=== PATIENT | male | born 1980 | race Two or more races ===

== ENCOUNTER → 2025-02-07 | Outpatient (CLI) | payer MEDICAID, SELFPAY ==
--- NOTE | 2025-02-07 14:19 | XR_ITS ---
Examination: Abdomen AP single view Technique: AP portable supine abdomen, single view Exam date and time: February 07, 2025 1425 hours INDICATIONS: History kidney stones FINDINGS: Abundant stool overlies the kidneys 6 mm calcific density which appears lateral to be a ureteral calculus Surgical clips upper right abdomen IMPRESSION: Abundant stool overlies the kidneys which impairs visualization
== END | disposition home or self-care (01) ==
LOC: CDIM 14:11
PROVIDERS: Referring Provider Surgery; Visit Provider Surgery
DX: K59.00 Constipation, unspecified (principal)
CPT/HCPCS: 74018

== ENCOUNTER 2025-04-06 08:10 | Day surgery (SDC) | payer MEDICAID, SELFPAY ==
--- NOTE | 2025-04-04 06:00 | EKG_ITS ---
[facility] Test Date: 2025-04-04 Pat Name: ALDEN MYRICK Department: Room: - Gender: Male Internal Audit Manager: KEITH : 1980 Requested By: Adarsh Granados Order Number: [id number] Reading MD: Adarsh Granados Measurements Intervals [place] Rate: 73 P: 36 DE: 152 QRS: 46 QRSD: 93 T: 31 QT: 361 QTc: 398 Interpretive Statements SINUS RHYTHM POSSIBLE RIGHT VENTRICULAR CONDUCTION DELAY [RSR (QR) IN V1/V2] NONSPECIFIC ST & T-WAVE ABNORMALITY Compared to ECG 12/26/2023 14:20:06 No significant changes /store/S0/[id number]/ecg/[id number].pdf
[2025-04-04 07:16] VITALS: BMI 25.2
[2025-04-04 07:41] LABS: Collection Type, Urine Clean Catch; Squamous Epithelial Cell,Urine 0 /hpf (0-5)
[2025-04-04 08:53] LABS: Basophils # (Auto) 0.0 Thou/mm3 (0.0-0.2); Basophils % (Auto) 1 % (0-2.5); Eosinophils # (Auto) 0.1 Thou/mm3 (0.0-0.5); Eosinophils % (Auto) 3 % (0-10); Hematocrit 47.1 % (41.0-53.0); Hemoglobin 16.4 g/dL (13.5-16.0); Immature Granulocytes Auto 0.01 Thou/mm3 (0.00-0.00); Lymphocytes # (Auto) 1.7 Thou/mm3 (1.0-4.8); Lymphocytes % (Auto) 34 % (10-50); Mean Corpuscular HGB Conc 34.8 g/dl (31.0-37.0); Mean Corpuscular Hemoglobin 31.1 pg (25.0-35.0); Mean Corpuscular Volume 89 fL (80-100); Monocytes # (Auto) 0.5 Thou/mm3 (0.0-0.8); Monocytes % (Auto) 10 % (0-12); Neutrophils # (Auto) 2.7 Thou/mm3 (1.8-7.7); Neutrophils % (Auto) 53 % (37-80); Nucleated Red Blood Cell # 0.00 Thou/mm3 (0.00-0.00); Nucleated Red Blood Cell % 0 /100 WBC (0); Platelet Count 226 Thou/mm3 (140-440); RDW Standard Deviation 40.8 fL (35.1-43.9); Red Blood Count 5.27 Miln/mm3 (4.50-5.90); White Blood Count 5.1 Thou/mm3 (3.8-10.6)
[2025-04-04 08:54] LABS: Bilirubin,Urine Negative (Negative); Blood,Urine Negative (Negative); Clarity,Urine Clear (Clear/Hazy); Color,Urine Lt-Yellow (Lt Yel-Yel); Glucose, Urine Negative (Negative); Ketones,Urine Negative (Negative); Leukocyte Esterase,Urine Negative (Negative); Nitrite,Urine Negative (Negative); PH,Urine 6.0 (5.0-7.0); Protein,Urine Negative (Neg - Trace); RBC,Urine 1 /hpf (0-3); Specific Gravity,Urine 1.019 (1.001-1.035); Urobilinogen,Urine Negative mg/dL (0.0-1.0); WBC,Urine < 1 /hpf (0-5)
[2025-04-04 09:03] LABS: Alanine Aminotransferase 47 U/L (10-49); Albumin, Serum 4.7 gm/dL (3.5-5.0); Albumin/Globulin Ratio 1.9 (1.2-2.2); Alkaline Phosphatase 80 U/L (46-116); Anion Gap 9 (7-16); Aspartate Amino Transferase 29 U/L (0-34); BUN/Creatinine Ratio 16 Ratio (12-20); Bilirubin,Total 0.7 mg/dL (0.3-1.2); Blood Urea Nitrogen 16 mg/dL (9-23); Calcium 10.1 mg/dL (8.3-10.6); Calcium (Corrected) 10.1 mg/dL (8.5-10.1); Carbon Dioxide 28.2 mMol/L (20.0-31.0); Chloride 104 mMol/L (98-107); Creatinine (Component) 1.0 mg/dL (0.6-1.3); Estimated Creatinine Clearance 89.1 mL/min (>60); Globulin 2.5 gm/dL (2.3-3.5); Glucose 92 mg/dL (74-106); Osmolality,Calculated 282 (275-295); Potassium 4.0 mMol/L (3.4-5.1); Sodium 141 mMol/L (136-145); Total Protein 7.2 gm/dL (5.7-8.2); eGFR > 60 See Note
--- NOTE | 2025-04-04 14:52 | ESHP_ITS ---
RE: ALDEN MYRICK : 1980 DATE OF ADMISSION: 04/04/2025 HISTORY OF PRESENT ILLNESS: The patient has a right renal stone. It is about less than 1 cm in size. He is scheduled to have a right ESWL. The patient was in [place] and had pain. She had an ultrasound done which revealed about right renal stone less than 1 cm in size. KUB film confirmed it. PAST MEDICAL HISTORY: The patient has a history of renal stones and had extracorporeal shockwave lithotripsy on both sides in the past. He also had cholecystectomy. He has no children. No history of diabetes mellitus. The patient has a history of hypertension and he takes lisinopril. ALLERGIES: NONE KNOWN. PHYSICAL EXAMINATION: HEENT: Normal. NECK: Supple. LUNGS: Clear. CARDIOVASCULAR: Heart sounds are normal. ABDOMEN: Soft. No organomegaly. No guarding. No rigidity. EXTREMITIES: Normal. IMPRESSION: 1. Right renal stone. 2. History of renal calculi in the past. 3. History of hypertension. PLAN: ESWL for right renal stone with cystoscopy and right ureteral stent insertion. The patient is scheduled to have cystoscopy, right ureteral stent insertion, and right ESWL for about a 1 cm stone in the right kidney. Planned procedure risks and complications have been discussed with the patient. The patient has understood them and agreed to proceed. DT: 14:05:45 TT: 14:49:00 Ref: [id number] - TID: [id number]
--- NOTE | 2025-04-05 14:22 | SUR.PREOP ---
Pt notified to come in at 0830 tomorrow.
[2025-04-06] VITALS (7 sets, daily range): BP systolic 106–149; BP diastolic 75–97; PULSE 76–93; RESP 14–20; TEMP 36.2–37.2; O2SAT 97–100; BMI 25.0
--- NOTE | 2025-04-06 06:00 | XR_ITS ---
Examination: Abdomen AP single view Technique: AP portable supine abdomen, single view Exam date and time: April 06, 2025 0905 hours INDICATIONS: Preop kidney stones FINDINGS: Tiny 1 to 2 mm bilateral renal calculi No renal calculi Stool in the colon overlies the kidneys IMPRESSION: Tiny bilateral renal calculi
--- NOTE | 2025-04-06 11:20 | SUR.PHASEI ---
1120 Patient arrived to recovery resting comfortably in [facility], sleeping comfortably able to arouse with verbal prompting then drifts back to sleep, on oxygen 8L via oxy mask, breathing unlabored, vital signs stable, denies pain and nausea, report received from Sherman CÁRDENAS and Lorrie MORA
--- NOTE | 2025-04-06 11:44 | SUR.PHASEI ---
pt awake, alert, able to follow commands, breathing unlabored, tolerating oral fluids without difficulty swallowing or n/v, report from Akilah Siddiqui RN
--- NOTE | 2025-04-06 12:08 | SUR.OPER ---
ESWL Treatment: Fluoro: 2 minutes 48 seconds Power: 7/8 Shocks: 2,500
--- NOTE | 2025-04-06 12:16 | ESOP_ITS ---
RE: ALDEN MYRICK : 1980 DATE OF OPERATION: 04/06/2025 PREOPERATIVE DIAGNOSIS: Right renal calculi. POSTOPERATIVE DIAGNOSIS: Right renal calculi. PROCEDURE PERFORMED: ESWL for right renal calculi. ANESTHESIA: General by Mr. Sherman CRNA. INDICATION: The patient is a 44-year-old gentleman with a history of renal calculi and had a lithotripsy in the past. He still has pain on the right side and has 3 stones, each one about 5 mm in size located in the upper, middle, and lower pole. He is now scheduled to have ESWL done for these 3 stones because of his pain. Planned procedure, risks and complications have been discussed with the patient. The patient understood them and agreed to proceed. DESCRIPTION OF PROCEDURE: After the patient was brought to the operating table under adequate general anesthesia, he was placed on Dornier Delta III lithotomy machine. These stones were treated with 2500 shocks, a power level of 7-8. These 3 stones were treated. The patient tolerated the entire procedure well and left the room in good condition. DT: 11:26:30 TT: 12:14:00 Ref: [id number] - TID: [id number]
--- NOTE | 2025-04-06 12:24 | SUR.PHASEII ---
pt awake, alert, able to follow commands, breathing unlabored, VS stable, discharge instructions given with sister Miryam present, all questions answered, pt able to dress self and ambulate to wheelchair with steady gait, pt discharged via wheelchair with all belonigings and copies of discharge paperwork.
== END 2025-04-06 12:24 | disposition home or self-care (01) ==
PROVIDERS: Anesthesiology; PCP Family Medicine; Referring Provider Surgery; Visit Provider Surgery
PROC: (CPT 50590; principal; 2025-04-06 10:15)
DX: N20.0 Calculus of kidney (principal); Z01.810 Encounter for preprocedural cardiovascular examination; I10 Essential (primary) hypertension
CPT/HCPCS: 50590; 36415; 74018; 80053; 81001; 85025; 87086; 93005; A4649; J0131; J1171; J1885; J2250; J2704; J3010; J3490

== ENCOUNTER 2025-04-20 06:21 | Emergency (ER) | payer MEDICAID, SELFPAY ==
[2025-04-20 06:22] VITALS: BMI 23.9
[2025-04-20 06:26] VITALS: BP 145/99; PULSE 79; RESP 16; TEMP 37; O2SAT 100
--- NOTE | 2025-04-20 06:31 | XR_ITS ---
Examination: CT abdomen and pelvis without contrast. Coronal 3-D reconstructions. Sagittal 2-D reconstructions. Date and time of exam:April 20, 2025, 0643 hrs., Comparison February 21, 2024 Indications: Flank pain one month, status post kidney stone surgery 04/13/2025 CTDI: vol (mGy): 6.61 DLP: (mGycm): 404 Technique: Axial images of the abdomen have been obtained, 3 mm slice thickness Intravenous contrast material has not been administered. Low dose protocols were performed. One or more of the following dose reduction techniques were used; automated exposure control, adjustment of the mA and/or KV according to patient size, use of iterative reconstruction technique. Findings: No visualized liver splenic lesion Absent gallbladder No extra hepatic biliary tract dilatation No pancreatic edema Minimal nodular thickening left adrenal gland Bilateral renal calculi, one to 6 mm No hydronephrosis or ureteral calculi Colonic diverticulosis Irregular thickening of the urinary bladder wall up to 8 mm, no bladder calculi Transverse prostate dimension 3.7 cm Normal appendix Impression: Numerous bilateral nonobstructing renal calculi, no hydronephrosis or ureteral calculi Irregular thickening of urinary bladder wall, consider cystitis
[2025-04-20] MEDS: KETOROLAC INJ 60 MG/2 ML VIAL 30 MG IM (06:50)
[2025-04-20 07:25] LABS: Collection Type, Urine Clean Catch; Squamous Epithelial Cell,Urine 0 /hpf (0-5)
[2025-04-20 07:29] LABS: Basophils # (Auto) 0.0 Thou/mm3 (0.0-0.2); Basophils % (Auto) 1 % (0-2.5); Eosinophils # (Auto) 0.2 Thou/mm3 (0.0-0.5); Eosinophils % (Auto) 3 % (0-10); Hematocrit 47.7 % (41.0-53.0); Hemoglobin 17.1 g/dL (13.5-16.0); Immature Granulocytes Auto 0.01 Thou/mm3 (0.00-0.00); Lymphocytes # (Auto) 1.7 Thou/mm3 (1.0-4.8); Lymphocytes % (Auto) 34 % (10-50); Mean Corpuscular HGB Conc 35.8 g/dl (31.0-37.0); Mean Corpuscular Hemoglobin 31.8 pg (25.0-35.0); Mean Corpuscular Volume 89 fL (80-100); Monocytes # (Auto) 0.4 Thou/mm3 (0.0-0.8); Monocytes % (Auto) 9 % (0-12); Neutrophils # (Auto) 2.6 Thou/mm3 (1.8-7.7); Neutrophils % (Auto) 54 % (37-80); Nucleated Red Blood Cell # 0.00 Thou/mm3 (0.00-0.00); Nucleated Red Blood Cell % 0 /100 WBC (0); Platelet Count 265 Thou/mm3 (140-440); RDW Standard Deviation 40.0 fL (35.1-43.9); Red Blood Count 5.37 Miln/mm3 (4.50-5.90); White Blood Count 4.9 Thou/mm3 (3.8-10.6)
[2025-04-20 07:40] LABS: Amorphous Crystals,Urine Present (Absent); Bacteria,Urine Rare; Bilirubin,Urine Negative (Negative); Blood,Urine Negative (Negative); Clarity,Urine Turbid (Clear/Hazy); Color,Urine Lt-Yellow (Lt Yel-Yel); Glucose, Urine Negative (Negative); Ketones,Urine Negative (Negative); Leukocyte Esterase,Urine Negative (Negative); Nitrite,Urine Negative (Negative); PH,Urine 7.0 (5.0-7.0); Protein,Urine Trace (Neg - Trace); RBC,Urine 3 /hpf (0-3); Specific Gravity,Urine 1.018 (1.001-1.035); Urobilinogen,Urine Negative mg/dL (0.0-1.0); WBC,Urine < 1 /hpf (0-5)
[2025-04-20 07:46] LABS: Alanine Aminotransferase 25 U/L (10-49); Albumin, Serum 4.6 gm/dL (3.5-5.0); Albumin/Globulin Ratio 1.8 (1.2-2.2); Alkaline Phosphatase 75 U/L (46-116); Anion Gap 8 (7-16); Aspartate Amino Transferase 12 U/L (0-34); BUN/Creatinine Ratio 8 Ratio (12-20); Bilirubin,Total 0.6 mg/dL (0.3-1.2); Blood Urea Nitrogen 9 mg/dL (9-23); Calcium 10.1 mg/dL (8.3-10.6); Calcium (Corrected) 10.1 mg/dL (8.5-10.1); Carbon Dioxide 30.6 mMol/L (20.0-31.0); Chloride 105 mMol/L (98-107); Creatinine (Component) 1.2 mg/dL (0.6-1.3); Estimated Creatinine Clearance 74.2 mL/min (>60); Globulin 2.6 gm/dL (2.3-3.5); Glucose 95 mg/dL (74-106); Lipase 27 U/L (12-53); Osmolality,Calculated 285 (275-295); Potassium 4.2 mMol/L (3.4-5.1); Sodium 144 mMol/L (136-145); Total Protein 7.2 gm/dL (5.7-8.2); eGFR > 60 See Note
[2025-04-20 08:01] VITALS: BP 131/89; PULSE 68; RESP 17; TEMP 36.7; O2SAT 97
--- NOTE | 2025-04-20 08:02 | PD.EDABDPN ---
ED Abdominal Pain RME/HPI General Chief Complaint: Abdominal Pain Stated complaint: RLQ PAIN Time seen by provider: 04/20/25 06:31 Arrival date/time: 04/20/25 06:21 44-year-old male with a history of hypertension presents to the emergency room with a chief complaint of right lower quadrant abdominal pain and right sided flank pain x 1 month Source: patient Mode of arrival: ambulatory Limitations: no limitations Related Data Home Medications ?Medication ?Instructions ?Recorded ?Confirmed telmisartan 80 mg-amlodipine 10 mg 1 tab PO DAILY 04/04/25 04/04/25 tablet Previous Rx's ?Medication ?Instructions ?Recorded ciprofloxacin HCl 500 mg tablet 500 mg PO BID #14 tabs 04/06/25 (Cipro) hydrocodone 5 mg-acetaminophen 325 1 tab PO Q6H PRN pain #30 tabs 04/06/25 mg tablet ibuprofen 800 mg tablet 800 mg PO Q8H #30 tabs 04/20/25 tamsulosin 0.4 mg capsule (Flomax) 0.4 mg PO QDAY #30 caps 04/20/25 Allergies Allergy/AdvReac Type Severity Reaction Status Date / Time No Known Allergies Allergy Verified 04/04/25 07:13 Review of Systems Review of Systems Systems Reviewed: All systems reviewed, normal except as documented Constitutional Constitutional: Reports system reviewed and no additional complaints, except as documented, Denies fatigue, Denies fever(s), Denies headache(s) and Denies weakness Eyes Eyes: Reports system reviewed and no additional complaints, except as documented, Denies blurry vision and Denies change in vision ENT Ears, Nose, Mouth, and Throat: Reports system reviewed and no additional complaints, except as documented, Denies otalgia, Denies headache(s), Denies nasal congestion, Denies throat swelling and Denies vertigo Cardiovascular Cardiovascular: Reports system reviewed and no additional complaints, except as documented, Denies chest pain, Denies dyspnea and Denies dyspnea on exertion Respiratory Respiratory: Reports system reviewed and no additional complaints, except as documented, Denies chest congestion, Denies cough, Denies dyspnea, Denies dyspnea on exertion and Denies wheezing Gastrointestinal Gastrointestinal: Reports system reviewed and no additional complaints, except as documented, Reports abdominal pain, Denies cramping, Reports nausea and Denies vomiting Genitourinary Genitourinary: Reports system reviewed and no additional complaints, except as documented, Denies dysuria and Denies hematuria Musculoskeletal Musculoskeletal: Reports system reviewed and no additional complaints, except as documented and Reports back pain Integumentary/Breasts Skin/Breast: Reports system reviewed and no additional complaints, except as documented and Denies wounds Neurologic Neurologic: Reports system reviewed and no additional complaints, except as documented, Denies confusion, Denies headache(s), Denies lack of coordination, Denies vertigo and Denies weakness Psychiatric Psychiatric: Reports system reviewed and no additional complaints, except as documented, Denies anxiety, Denies confusion, Denies depression, Denies paranoia, Denies suicidal ideation and Denies tactile hallucinations Endocrine Endocrine: Reports system reviewed and no additional complaints, except as documented and Denies fatigue Hematologic/Lymphatic Hematologic/Lymphatic: Reports system reviewed and no additional complaints, except as documented and Denies lymphadenopathy Allergic/Immunologic Allergic/Immunologic: Reports system reviewed and no additional complaints, except as documented, Denies throat swelling, Denies urticaria and Denies wheezing Past Medical History Past Medical History NEUROLOGIC: Negative Neurological Disorders or Seizures CARDIAC: Positive Cardiac Disorders and Hypertension; Negative Congestive Heart Failure RESPIRATORY: Negative Chronic Obstructive Pulmonary Disease (COPD) GASTROINTESTINAL: Negative Gastrointestinal Disorders or Gall Bladder Disease GENITOURINARY: Positive Genitourinary Disorders and Kidney Stones; Negative Renal Disease MUSCULOSKELETAL: Positive Musculoskeletal Disorders and Fractures ENDOCRINE: Negative Endocrine Disorders, Diabetes Mellitus Type 1 or Diabetes Mellitus Type 2 HEMATOLOGIC: Negative Blood Disorders OTHER HISTORY: Positive Shingles and Chicken Pox; Negative Hospitalization, Autoimmune Disease, Blood Transfusions, Blood Transfusion Reaction, Anesthesia Reactions, MRSA or Cancer Family History FAMILY HISTORY: Positive Family Surgery; Negative Family Psychiatric Problems, Family Respiratory Disorders, Family Cardiac Disorders, Family Gastrointestinal Problems, Family Cancer or Family Anesthesia Reaction Surgical History SURGICAL: Positive Abdominal Surgery; Negative Vasectomy Social History SMOKING STATUS: Never smoker ED Exam General Limitations: Present no limitations General appearance: Present alert and in no apparent distress Head Head exam: Present atraumatic Eye Eye exam: Present normal appearance, PERRL and EOMI ENT ENT exam: Present normal exam, normal oropharynx and mucous membranes moist Neck Neck exam: Present normal inspection, full ROM and trachea midline Chest Chest inspection: Present normal inspection and symmetric chest wall rise Respiratory Respiratory exam: Present normal lung sounds bilaterally Cardiovascular Cardiovascular exam: Present regular rate, normal rhythm and normal heart sounds Abdominal Exam Abdominal exam: Present soft, tenderness and normal bowel sounds; Absent Chavira's sign, Rovsing's sign or tenderness at McBurney's Point Abdominal tenderness: Present RLQ and mild Extremities Exam Extremities exam: Present normal inspection and full ROM Back Exam Back exam: Present normal inspection, full ROM and CVA tenderness (R) Neurological Exam Neurological exam: Present alert, oriented X3 and CN II-XII intact Psychiatric Psychiatric exam: Present normal affect and normal mood Skin Skin exam: Present warm, dry, intact and normal color Course Quality Measures none Orders Category Date Time Status CT abdomen pelvis wo con Stat Exams 04/20/25 06:31 Completed CBC Stat Lab 04/20/25 07:06 Completed CMP [Comprehensive Metabolic Panel] Stat Lab 04/20/25 07:06 Completed Lipase Stat Lab 04/20/25 07:06 Completed UA [Urinalysis] Stat Lab 04/20/25 06:54 Completed Urine Culture Stat Lab 04/20/25 06:54 Received Ketorolac Inj [Toradol Inj] Med 04/20/25 06:31 Discontinued 30 mg IM X1 ONE Vital Signs Vital signs: Vital Signs Temperature 98.6 F 04/20/25 06:26 Pulse Rate 79 04/20/25 06:26 Respiratory Rate 16 04/20/25 06:26 Blood Pressure 145/99 H 04/20/25 06:26 Pulse Oximetry (%) 100 04/20/25 06:26 Oxygen Delivery Method Room Air 04/20/25 06:26 Abdominal Pain MDM MDM Narrative MDM Narrative:: 44-year-old male with a history of hypertension presents to the emergency room with a chief complaint of right lower quadrant abdominal pain and right sided flank pain x 1 month Patient is hemodynamically stable and in no apparent distress. Patient is nontachycardic nontachypneic and is afebrile Physical examination shows no tenderness to McBurney's point. Patient has diffuse abdominal pain that begins in the flank and is near the side of his abdomen. There is no rebound tenderness. There is CVA tenderness with palpation. The patient is afebrile and has no vomiting. Patient recently had a surgery on 04/06/2025 and his kidney to remove kidney stones. A CT of the abdomen and pelvis still shows some numerous bilateral nonobstructing renal calculi there is no neither hydronephrosis or no ureteral calculi. There is no UTI and there is no leukocytosis Patient was discharged and educated to follow-up with primary care provider in the next 24 to 48 hours and return to the emergency room for any evidence of worsening signs or symptoms Patient data External records reviewed:: [facility] previous records Clinical information provided by:: patient Social determinants that could affect healthcare access:: none Patient has the following chronic illnesses:: No chronic illness How is presenting disease/condition affected by chronic disease/condition?: no chronic disease Evaluation data The following diagnostics were reviewed and interpreted by me:: lab results and radiology exam(s) Lab and/or radiology exams considered but not ordered:: Labs and radiology exams considered and ordered Interpretation Summary: CT abdomen and pelvis-Findings: No visualized liver splenic lesion Absent gallbladder No extra hepatic biliary tract dilatation No pancreatic edema Minimal nodular thickening left adrenal gland Bilateral renal calculi, one to 6 mm No hydronephrosis or ureteral calculi Colonic diverticulosis Irregular thickening of the urinary bladder wall up to 8 mm, no bladder calculi Transverse prostate dimension 3.7 cm Normal appendix Impression: Numerous bilateral nonobstructing renal calculi, no hydronephrosis or ureteral calculi Irregular thickening of urinary bladder wall, consider cystitis Medications / Prescriptions Medications or Prescriptions considered but not ordered:: Medication given Medication administrations:: Medication Administration History Discontinued Medications Ketorolac Tromethamine (Ketorolac Inj 60 Mg/2 Ml Vial) 30 mg IM X1 ONE Stop: 04/20/25 06:32 Last Admin: 04/20/25 06:50 Dose: 30 mg Documented By: AC Medication given Consultations Consultation(s) initiated? (list below): No Diagnosis Differential diagnosis abdominal pain: abdominal pain, acute appendicitis, calculus of kidney and gastroenteritis Most likely diagnosis given after review of the tests above:: Renal calculi Admission Indicated Admission indicated?: not indicated Admission Request Was there a request for admission?: No Disposition Plan Disposition Plan: Discharge Discharge Attestation Discharge Attestation: The patient and all family members were given an opportunity to ask questions and understood the discharge instructions. Discharge instructions specifically effects, indications for sooner follow up or return to the emergency department, and the expected course of current diagnosis. Patient condition: Stable Discharge Plan Plan Patient Disposition: HOME (Self Care) Discharge Disposition comment: Stable Prescriptions/Referrals Prescriptions/Med Rec: New tamsulosin [Flomax] 0.4 mg capsule 0.4 mg PO QDAY Qty: 30 0RF ibuprofen 800 mg tablet 800 mg PO Q8H Qty: 30 0RF No Action telmisartan-amlodipine 80-10 mg tablet 1 tab PO DAILY Patient Comments: TAKE 1 TABLET BY MOUTH EVERY DAY hydrocodone-acetaminophen 5-325 mg tablet 1 tab PO Q6H MDD 4 PRN (Reason: pain) Qty: 30 0RF ciprofloxacin HCl [Cipro] 500 mg tablet 500 mg PO BID Qty: 14 0RF Referrals: No Primary/Family,Physician [Primary Care Provider] - In 1 week Problem List Clinical Impression: Renal calculi Patient/Caregiver Discharge Instructions Education Materials: ED Kidney Stone w/ Colic Additional Instructions: Please follow-up with your primary care provider in the next 24 to 48 hours There is multiple kidney stones. Medication was sent to your pharmacy to help you pass the stones. For any evidence of worsening signs or symptoms return to the emergency room immediately Print Language: French Stand Alone Forms: Maddie Award Info., Work/School Release, Patient Portal Info Letter PA/CANAL STRUCTURE OPERATOR Supervising Physician PA/GIOVANA Supervising Physician: Dr. Fontaine
== END 2025-04-20 08:06 | disposition home or self-care (01) ==
PROVIDERS: Emergency Provider Nurse Practitioner Family
DX: N20.0 Calculus of kidney (principal)
CPT/HCPCS: 36415; 74176; 80053; 81001; 83690; 85025; 87086; 99284; J1885

== ENCOUNTER → 2025-07-17 | Outpatient (BNVA) | payer MEDICAID, SELFPAY | END | disposition home or self-care (01) | PROVIDERS: PCP Family Medicine; Referring Provider Family Medicine; Visit Provider Urology | DX: R10.9 Unspecified abdominal pain (principal); N20.0 Calculus of kidney; I10 Essential (primary) hypertension | CPT/HCPCS: 81003; 99212; G0463 ==